=== PATIENT | female | born 1950 | race American Indian/Alaskan Native ===

== ENCOUNTER 2018-01-06 09:25 | Outpatient (CLI) | payer MEDICARE ==
--- NOTE | 2018-01-06 15:23 | Mammography Report ---
BILATERAL DIGITAL SCREENING MAMMOGRAM with CAD: 01/06/18 09:25:00 CLINICAL: Routine screening. COMPARISON:09/04/14 FINDINGS: The breasts are heterogeneously dense, which may obscure small masses. No mass, architectural distortion or suspicious calcifications. IMPRESSION: No mammographic evidence of malignancy. BI-RADS CATEGORY: 1 - - Negative RECOMMENDATION: Routine mammographic screening in one year. COMMENT: Patient follow-up letters are generated by our [employer] application.
== END 2018-01-06 09:26 | disposition home or self-care (01) ==
LOC: MAMMO 09:25
PROVIDERS: ATTEND Family Medicine
DX: Z12.31 Encounter for screening mammogram for malignant neoplasm of breast (principal)
CPT/HCPCS: 77067

== ENCOUNTER 2018-03-18 00:59 | Emergency (ER) | payer MEDICARE ==
[2018-03-18] MEDS ORDERED: ASPIRIN PO ONE (01:27)
--- NOTE | 2018-03-18 02:01 | Emergency Department Report ---
ED General Adult HPI - General Chief complaint: Arrhythmia/Palpitations Stated complaint: CHEST PAIN, SHORTNESS OF BREATH Time Seen by Provider: 03/18/18 02:00 Source: EMS Mode of arrival: Stretcher Limitations: No Limitations - History of Present Illness Severity scale (0 -10): 0 - Related Data Allergies Allergy/AdvReac Type Severity Reaction Status Date / Time Penicillins Allergy Hives Unverified 09/04/14 10:15 tetracycline Allergy Hives Unverified 09/04/14 10:14 ED Review of Systems ROS: Stated complaint: CHEST PAIN, SHORTNESS OF BREATH Other details as noted in HPI ED Past Medical Hx - Past Medical History Previous Medical History?: No - Surgical History Past Surgical History?: Yes Additional Surgical History: hysterectomy - Social History Smoking Status: Never Smoker Substance Use Type: None ED Physical Exam - General Limitations: No Limitations ED Course Vital Signs 03/18/18 01:21 Temperature 98.5 F Pulse Rate 109 H Respiratory 18 Rate Blood Pressure 113/68 Blood Pressure 113/68 [Right] O2 Sat by Pulse 98 Oximetry Critical care attestation.: If time is entered above; I have spent that time in minutes in the direct care of this critically ill patient, excluding procedure time. ED Disposition Condition: Stable
[2018-03-18 02:27] LABS: Eosinophils # (Auto) 0.1 K/mm3 (0.0-0.4); Eosinophils % (Auto) 1.5 % (0.0-4.3); Hemoglobin 12.2 gm/dl (10.1-14.3); Lymphocytes # (Auto) 1.1 K/mm3 (1.2-5.4); Lymphocytes % (Auto) 26.5 % (13.4-35.0); Mean Corpuscular HGB Conc 33 % (30-34); Mean Corpuscular Hemoglobin 29 pg (28-32); Mean Corpuscular Volume 87 fl (79-97); Monocytes # (Auto) 0.3 K/mm3 (0.0-0.8); Monocytes % (Auto) 8.2 % (0.0-7.3); Platelet Count 195 K/mm3 (140-440); Red Blood Count 4.28 M/mm3 (3.65-5.03); Red Cell Distribution Width 14.6 % (13.2-15.2)
--- NOTE | 2018-03-18 02:51 | Emergency Department Report ---
ED General Adult HPI - General Chief complaint: Arrhythmia/Palpitations Stated complaint: CHEST PAIN, SHORTNESS OF BREATH Time Seen by Provider: 03/18/18 02:00 Source: patient, EMS (verbal report received from EMS.ems notes not available at time of chart dictation), RN notes reviewed Mode of arrival: Stretcher Limitations: No Limitations - History of Present Illness Initial comments: This is a 68-year-old female who is unknown to this provider previously. Primary care doctor is Dr. Streeter. She reports no chronic medical conditions, and specifically denies cardiac history as well as taking systemic anticoagulation. Patient presents to the ER with a complaint of resolved SVT. Patient reports that intermittently over the past couple months and years, she' s had episodes of heart fluttering and palpitations which are painless, not provoked by anything, and typically resolve on their own. She reports being in her usual state of health when earlier on this evening, at 9:30, experienced episodes of heart fluttering and palpitations which were painless. This lasted for a few seconds and then went away. She then reports at 11:30 yesterday evening, she developed an episode of palpitations and shortness of breath which was painless. She felt uncomfortable, and contacted 911. Prehospital EKG demonstrated SVT, which was terminated with adenosine. Post-adenosine administration, EKG obtained demonstrates normal sinus rhythm. The patient is now back to her usual state of health and denies all complaints at this time. She denies headache, neck pain, chest pain, abdominal pain, shortness of breath , urinary symptoms, hematemesis, bright red blood per rectum. She denies toxic drugs and cocaine, and reports that she has no urinary symptoms. -: Gradual Severity scale (0 -10): 0 Consistency: now resolved Improves with: medication Worsens with: none Associated Symptoms: denies other symptoms - Related Data Allergies Allergy/AdvReac Type Severity Reaction Status Date / Time Penicillins Allergy Hives Verified 03/18/18 02:04 tetracycline Allergy Hives Unverified 09/04/14 10:14 ED Review of Systems ROS: Stated complaint: CHEST PAIN, SHORTNESS OF BREATH Other details as noted in HPI Constitutional: denies: fever Eyes: denies: vision change ENT: denies: epistaxis Respiratory: denies: cough Cardiovascular: palpitations. denies: chest pain Gastrointestinal: denies: abdominal pain Genitourinary: denies: dysuria Musculoskeletal: denies: back pain Skin: denies: lesions Neurological: denies: weakness ED Past Medical Hx - Past Medical History Previous Medical History?: No - Surgical History Past Surgical History?: Yes Additional Surgical History: hysterectomy - Social History Smoking Status: Never Smoker Substance Use Type: None ED Physical Exam - General Limitations: No Limitations General appearance: alert, in no apparent distress - Head Head exam: Present: atraumatic, normocephalic - Eye Eye exam: Present: normal appearance, EOMI. Absent: nystagmus - ENT ENT exam: Present: normal exam, normal orophraynx, mucous membranes moist, normal external ear exam - Neck Neck exam: Present: normal inspection, full ROM - Respiratory Respiratory exam: Present: normal lung sounds bilaterally. Absent: respiratory distress - Cardiovascular Cardiovascular Exam: Present: regular rate, normal rhythm, normal heart sounds. Absent: bradycardia, tachycardia, irregular rhythm, systolic murmur, diastolic murmur, rubs, gallop - GI/Abdominal GI/Abdominal exam: Present: soft, normal bowel sounds. Absent: distended, tenderness, guarding, rebound, rigid, pulsatile mass - Extremities Exam Extremities exam: Present: normal inspection, full ROM, normal capillary refill. Absent: pedal edema, joint swelling, calf tenderness - Back Exam Back exam: Present: normal inspection, full ROM. Absent: tenderness, CVA tenderness (R), paraspinal tenderness, vertebral tenderness - Neurological Exam Neurological exam: Present: alert, oriented X3, CN II-XII intact, normal gait, other (Extraocular movements intact. Tongue midline. No facial droop. Facial sensation intact to light touch in the V1, V2, V3 distribution bilaterally. 5 and 5 strength in 4 extremities.. Sensation is intact to light touch in 4 extremities.). Absent: motor sensory deficit - Psychiatric Psychiatric exam: Present: normal affect, normal mood - Skin Skin exam: Present: warm, dry, intact, normal color. Absent: rash ED Course Vital Signs 03/18/18 03/18/18 01:21 02:52 Temperature 98.5 F 98.3 F Pulse Rate 109 H 83 Respiratory 18 19 Rate Blood Pressure 113/68 Blood Pressure 113/68 128/89 [Right] O2 Sat by Pulse 98 100 Oximetry ED Medical Decision Making - Lab Data Result diagrams: 03/18/18 01:56 03/18/18 01:56 Vital Signs 03/18/18 03/18/18 01:21 02:52 Temperature 98.5 F 98.3 F Pulse Rate 109 H 83 Respiratory 18 19 Rate Blood Pressure 113/68 Blood Pressure 113/68 128/89 [Right] O2 Sat by Pulse 98 100 Oximetry Labs 03/18/18 03/18/18 03/18/18 01:56 01:56 02:04 WBC 4.3 L RBC 4.28 Hgb 12.2 Hct 37.0 MCV 87 MCH 29 MCHC 33 RDW 14.6 Plt Count 195 Lymph % (Auto) 26.5 Cobb % (Auto) 8.2 H Eos % (Auto) 1.5 Baso % (Auto) 1.0 Lymph # 1.1 L Cobb # 0.3 Eos # 0.1 Baso # 0.0 Seg Neutrophils % 62.8 Seg Neutrophils # 2.7 PT > 120.0 H INR > 17.67 H* Sodium 142 Potassium 4.2 Chloride 110.4 H Carbon Dioxide 16 L Anion Gap 20 BUN 14 Creatinine 0.7 Estimated GFR > 60 BUN/Creatinine Ratio 20 Glucose 110 H Calcium 8.0 L Magnesium TSH 03/18/18 03/18/18 02:04 02:04 WBC RBC Hgb Hct MCV MCH MCHC RDW Plt Count Lymph % (Auto) Cobb % (Auto) Eos % (Auto) Baso % (Auto) Lymph # Cobb # Eos # Baso # Seg Neutrophils % Seg Neutrophils # PT INR Sodium Potassium Chloride Carbon Dioxide Anion Gap BUN Creatinine Estimated GFR BUN/Creatinine Ratio Glucose Calcium Magnesium 2.20 TSH 3.760 - EKG Data When compared to previous EKG there are: previous EKG unavailable 03/18/18 04:10 Prehospital EKG initially shows SVT which is not consistent with STEMI. Post-administration prehospital EKG shows normal sinus, rate of 90 bpm, normal intervals, normal axis, not a STEMI. ER EKG demonstrates sinus, 79 bpm, normal axis, T-wave inversion in V3, V4, borderline atrial enlargement, abnormal EKG, not a STEMI - Radiology Data Radiology results: report reviewed, image reviewed X-ray of the chest is negative for acute disease - Medical Decision Making Differential diagnosis, including but not limited to: SVT, electrolyte derangement, thyroid disorder Assessment and plan: 68-year-old female with history of undiagnosed SVT, with prehospital SVT that was terminated with adenosine. She had no symptoms prior to episode of SVT. She has no DVT, pulmonary embolus risk factors, denies bleeding, denies taking systemic anticoagulation. PT INR elevated, this is most likely a false positive. Her tachycardia has resolved, she's been hemodynamically stable, and I discussed vagal maneuvers with the patient to terminate event in the future if it happened agAin. She is medically suitable to follow up with an outpatient primary care doctor or automobile seat cover installer at this time. The patient has some incidental laboratory abnormalities which appear to be inconsequential, not symptomatic at this time, and she can follow up with the primary care doctor or automobile seat cover installer for this. Critical care attestation.: If time is entered above; I have spent that time in minutes in the direct care of this critically ill patient, excluding procedure time. ED Disposition Clinical Impression: History of supraventricular tachycardia Disposition: DC-01 TO HOME OR SELFCARE Is pt being admited?: No Does the pt Need Aspirin: No Condition: Stable Instructions: Supraventricular Tachycardia (ED) Additional Instructions: Follow-up with the primary care doctor or automobile seat cover installer as directed within the next 5-7 days. Avoid consumption of caffeinated beverages, stimulants. If patient experiences the event again, use the vagal techniques that we described. Return to the ER right away with new pain, worsened pain, migration of pain, fevers, chills, lethargy, irritability, projectile vomiting, change in mental status, confusion, loss of consciousness, inability to tolerate liquid feeds. Laboratory studies today were essentially unremarkable, and demonstrated some nonemergent abnormalities which should be followed up by her primary care doctor. Referrals: KULDIP BRAND MD [Primary Care Provider] - 3-5 Days MELONIE STREETER MD [Staff Physician] - 3-5 Days [facility] [Provider Group] - 3-5 Days [facility] [Provider Group] - 3-5 Days
--- NOTE | 2018-03-18 02:52 | XRay Report ---
FINAL REPORT EXAM: XR CHEST ROUTINE 2V HISTORY: chest pain COMPARISON: None available. FINDINGS:: Frontal and lateral views of the chest obtained. Heart upper limits normal in size. Azygos lobe is present. No focal consolidation or effusion. No pneumothorax. IMPRESSION:: Heart upper limits normal in size. Lungs are clear.
[2018-03-18 02:54] VITALS: BP 128/89
[2018-03-18 03:12] LABS: BUN/Creatinine Ratio 20; Blood Urea Nitrogen 14 mg/dL (7-17); Hemolysis Index 12
[2018-03-18 03:43] LABS: INR > 17.67 (0.87-1.13)
== END 2018-03-18 04:56 | disposition home or self-care (01) ==
LOC: ED 00:59
DX: Z86.79 Personal history of other diseases of the circulatory system (principal); Z90.710 Acquired absence of both cervix and uterus; Z88.0 Allergy status to penicillin
CPT/HCPCS: 36415; 71046; 80048; 83735; 84443; 85025; 85610; 93005; 93010; 99284

== ENCOUNTER 2019-12-01 12:51 | Outpatient (CLI) | payer MEDICARE ==
--- NOTE | 2019-12-01 13:59 | Mammography Report ---
BONE DEXA CLINICAL: Bone density screening. Postmenopausal TECHNIQUE: 2 site bone DEXA performed on an Hologic scanner. FINDINGS: The average BMD of the lumbar spine L1-L4 is 0.486g/cm squared with a T score of -5.1 and a Z score o f -3.7. The average total BMD of the left hip is 0.504 g/cm squared with a T score of -3.6 and a Z score of - 2.2. IMPRESSION: WHO classification: Osteoporosis. RECOMMENDATION: Clinical correlation and routine screening. Definitions: BMD equal bone mineral density T score = BMD related to peak bone mass of young adult (Addison expressed an standard deviation) Z score = age-matched BMD expressed in SD World health organization (WHO) diagnostic criteria Normal T score greater than equal to 1 standard deviation Osteopenia T score between -1 and -2.4 standard deviation Osteoporosis T score -2.5 standard deviation or below. Note: BMD is not the only risk factor for fracture; also consider factors such as the patient's age, risk of falling, previous osteoporotic fracture, family history of osteoporotic fractures, current sm oker and low body weight. Z scores are not calculated if greater than 80 years of age. Signer Name: Dami Avina MD Signed: 12/01/2019 1:55 PM Workstation Name: [id number]
--- NOTE | 2019-12-01 14:14 | Mammography Report ---
BILATERAL DIGITAL SCREENING MAMMOGRAM WITH CAD HISTORY: SCREENING MAMMO TECHNIQUE: Routine digital mammographic imaging performed. This examination was interpreted with yoana guajardo benefit of Computer-aided Detection analysis. COMPARISON: 09/04/2014, 09/02/2013, 09/06/2012. More recent program performed 2018 is unable to be re trieved at this time. FINDINGS: Breast Density: scattered fibroglandular appearance of the breast tissue. Digital CC and MLO views demonstrate no mammographic evidence of malignancy. IMPRESSION: No mammographic evidence of malignancy. If the clinical examination remains stable, recommend bilate ral mammogram in approximately one year. BIRADS 1: Negative. FURTHER INFORMATION: According to the [employer], yearly mammograms are recommend ed starting at age 40 and continuing as long as a woman is in good health. Clinical Breast Exams shou ld be part of a periodic health exam-about every 3 years for women in their 20s and 30s and every yea r for women 40 and over. Breast self exam is an option for women starting in their 20s. Any breast ch yariel noted on a breast self exam should be reported promptly to the patient's healthcare provider. Br east MRI is recommended for women with an approximately 20-25% or greater lifetime risk of breast can cer, including women with a strong family history of breast or ovarian cancer and women who have been treated for Hodgkin's disease. A negative Mammography report should not discourage follow up or biopsy of a clinically significant f inding and/or abnormality. Dense breast tissue may obscure small neoplasms. The patient will be entered into a reminder system with a target due date for the next screening mamm ogram. Signer Name: Dami Avina MD Signed: 12/01/2019 2:10 PM Workstation Name: [id number]
== END 2019-12-01 12:52 | disposition home or self-care (01) ==
LOC: MAMMO 12:51
PROVIDERS: ATTEND Family Medicine
DX: Z12.31 Encounter for screening mammogram for malignant neoplasm of breast (principal); M81.0 Age-related osteoporosis without current pathological fracture; Z13.820 Encounter for screening for osteoporosis
CPT/HCPCS: 77067; 77080